=== PATIENT | female | born 1980 | race Caucasian/White ===

== ENCOUNTER 2019-07-12 08:25 | Day surgery (SDC) | payer BC, SELFPAY ==
[2019-06-16 12:47] VITALS: BMI 28.8
[2019-07-12] VITALS (8 sets, daily range): BP systolic 110–123; BP diastolic 50–70; PULSE 50–69; RESP 16; TEMP 36.6–36.9; O2SAT 98–100; BMI 23.6
[2019-07-12 08:51] LABS: Internal QC Validated? YES +Cl - CLEAR BKGD
[2019-07-12 08:52] LABS: Pregnancy, Urine Negative Negative
[2019-07-12] MEDS: Lactated Ringers 1,000 ML 100 ML IV ×2 (09:08→12:45)
--- NOTE | 2019-07-12 10:43 | HP.PCM_ITS ---
History and Physical I have re-examined the patient. There are no clinical changes since date of exam. Intake Vital Signs 06/16/19 Body Mass Index (BMI) 28.8 Intake Visit Reasons: LEFT KNEE Accompanied by: Is patient in pain?: Yes Allergies No Known Allergies Allergy (Verified 11/08/14 21:50) Medications Folic Acid 1 mg PO DAILY@0800 11/08/14 [History Confirmed 06/16/19] Naproxen [Naprosyn] 250 - 500 mg PO Q8H PRN PRN #30 tab 11/08/14 [Rx Confirmed 06/16/19] Laurens-3 Fatty Acids [Fish Oil] 500 mg PO DAILY 11/08/14 [History Confirmed 06/16/19] PFSH Social History (Updated 06/17/19 @ 11:35 by ZINA Jackson) Smoking Status: Never smoker HPI LEFT KNEE: Details: Parts of this documentation were recorded by a scribe, this documentation accurately reflects the service provided and the decisions made by me, ZINA Jackson 06/16/19 1242. GWENDOLYN GABRIEL is a 39 year old F here today for increased left medial and anter ior knee pain. She states that she has avoided squats and lunges due to sharp pain, she continues to exercise with modifications. Patient has increased clicking, instability and has pain with all ADLs especially sleeping and normal ambulation on a decline of any kind. Denies numbness, tingling or other associated symptoms. Patient has no evident swelling today and states it is not a concern. ROS Const Denies weakness Musc Reports system reviewed and no additional complaints, except as docu, Reports joint pain, Denies numbness Skin/Breast Reports system reviewed and no additional complaints, except as docu Neuro Yes system reviewed and no additional complaints, except as docu, No numbness, No weakness Ortho Exam Left Knee Skin/Wound: No ecchymosis, No erythema, No swelling Contralateral Normal: Yes Homans Sign: No Knee ROM: Yes ROM-Extension -20 to 0, Yes ROM-Flexion 0-140 Examination: Yes med jt line tenderness, No Lat jt line tenderness, Yes Pain with flexion, Yes Wallace's Test KNEE: No acute abnormalities on inspection. No localized or generalized swelling and no evident effusion. She continues to have evident reproducible medial joint line tenderness. She still has positive modified Apley's grind as well as Wallace's. She is neurovascularly intact. Assessment & Plan Problems 1. Other tear of medial meniscus of left knee as current injury, subsequent encounter S83.242D Plan Patient has been having symptoms in her left knee for almost exactly 1 year now. At this point she states that the symptoms have progressively gotten worse having a lot more instability and sometimes locking of the knee. She did have an MRI last July and we did discuss that it is very possible that this has changed/worsened as she is continue to be active since that time. MRI at that time showed possibility of a posterior capsule injury likely causing displacement of the joint with certain movements. Patient has tried conservative things and states that at this time she would like to proceed with surgery to correct this. All of the risks and benefits of surgery were discussed as well as the procedure and recovery times. All of their questions were answered to their satisfaction and consent was signed in office today. Patient will be notified by our office for the date of her surgery she will not of the time of her surgery until the day before. She will be contacted by surgery department as well as anesthesia for preanesthesia testing. Patient was given antimicrobial soap to be used the night before and morning of surgery. Notify the office if they have any other questions in the meantime. This note was generated with [employer] dictation software. It may contain incorrect words, spelling, and punctuation that were not noted in checking the note before signing. Coding Level of Care Code Off vis,est,level 3 Diagnoses Other tear of medial meniscus of left knee as current injury, subsequent encounter S83.629D ??Encounter type: subsequent encounter ??Meniscus tear of knee type: other type ??Tear current or old: current
--- NOTE | 2019-07-12 10:44 | PCM.DC.ORTHO ---
Discharge Diet: No Restrictions - ttwb left leg for 6 weeks, brace locked in extension at night and during ambulation, brace 0-30 degrees for 2 weeks Discharge Activity: May Not Drive May shower in (days): 1 Ice area for (Minutes): 20 - Every hour while awake. Weight Bearing Status: Weight bearing as tolerated Keep extremity elevated above heart level: Operative Extremity Call your doctor if your incision/area has: Continuous Slow Oozing, Sudden Increased Bleeding, Increased Pain/ Swelling, Increased Redness, Foul Smelling Discharge Call your doctor if you observe: Fever of 101 or Higher, Coldness, Increased Pain, Numbness or Tingling, Change in Color, Calf discomfort Allergies/Adverse Reactions: Allergies No Known Allergies Allergy (Verified 07/12/19 08:50) Medications to take at Discharge Glucos Sul 2Kcl/MSM/Chond/C/Mn [Glucosamine Chondroitin Cap] 1 ea PO DAILY 07/05/19 Oxycodone HCl/Acetaminophen [Percocet 5/325] 1 - 2 tab PO Q6H PRN PRN 5 Days #28 tab 07/12/19 The following prescriptions were given: Oxycodone HCl/Acetaminophen [Percocet 5/325] 1 - 2 tab PO Q6H PRN PRN 5 Days #28 tab PRN Reason: Pain Transmission Status: Received by [facility] Primary Care Physician: Ramesh Hernandez MD [Primary Care Provider] - Test Results: Test results from this visit will be discussed in further detail at your follow-up appointment, if applicable. Please Follow Up With: Gita Paulino, - [phone]
--- NOTE | 2019-07-12 10:44 | PCM.OPRPT ---
Report of Operation Date of Procedure: 07/12/19 Pre-Operative Diagnosis: left knee synovitis, med men tear Post-Operative Diagnosis: same Surgery/Procedure Performed:: salk medial meniscus repair, extensive synovectomy seam stay stitcher: Ilya Holland Type of Anesthesia:: General Anesthesiologist: Davis Cordero Estimated Blood Loss (mL): none Fluids Replaced: 500cc lr Description of Procedure: Preop note Patient is a 39-year-old female with continued left knee pain. Patient failed conservative treatment like to proceed with left knee arthroscopy repair as indicated. Risk benefits alternatives were discussed with patient. Risks including but not limited to blood loss, blood clot, infection, neurovascular injury, failure procedure, loss of life and loss of limb. Patient is aware of like proceed with left knee arthroscopy repair as indicated. Operative note Patient seen and examined preop holding area. Left knee was marked. Patient brought to the operating room placed supine on the operating table. 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 Left knee was prepped and draped in usual sterile fashion with a tourniquet around her upper thigh. Signed, anesthesia, antibiotics were administered. The contralateral limb SCDs placed in all bony problems well-padded padded. We then elevate the left knee exsanguinated and triggers rates her pressure of 250 torr. We then created a anterolateral portal with 11 blade. Begin diagnostic arthroscopy. Patellofemoral joint was intact there is a large plica and large synovitis in the anterior medial anterolateral joint line. We then created an anterior medial portal under direct visualization. We then probed the medial meniscus there was a capsular tear of the mid body. We then used a rasp to rasp the edges of the tear and he could also tell that was torn only because of it was unstable but was also an area of erythema at the capsular meniscal junction. We then rasped this area and then placed to reverse curved FasT-Fix devices on the undersurface of the tear we then reprepped the area which was stable. The ACL PCL were present within the notch. We again debrided more synovitis which was again anteromedial anterolateral preventing us from seeing the lateral meniscus. We then went to figure for we are able to improve the lateral meniscus which is intact and stable probing. The lateral femoral condyle the medial femoral condyle lateral to the tibial plateau and the medial tibial plateau were all intact and stable probing. The knee was irrigated Sterile Saline. Tourniquet Was Deflated for a Total Working Time of 24 Minutes. Sterile Dressings Were Applied after Return after the Incisions Were Closed with Interrupted 4-0 Nylon Stitches. Hinged Brace Locked in Extension Was Placed on Her Left Knee with Opening from 0 to 30 Degrees. Patient Tolerated Procedure Well No Comp Occasions [facility] Recovery Room in Stable Condition. Next Postoperative Next Toe-Touch Weightbearing Left Leg Next Follow-Up on Wednesday with Rickey for dressing change and brace adjustment We will give pictures to family in 2 weeks Call with increased pain numbness tingling or further issues arise [employer]uson disclaimer This note was generated with [employer] dictation software. It may contain incorrect words, spelling, and punctuation that were not noted in checking the note before signing.
[2019-07-12] MEDS: Cefazolin 2 GM in 0.9% Normal Saline 100 ML IV (11:29)
[2019-07-12] MEDS: Mupirocin Ointment 22gm Tube 1 APPLIC (12:00)
[2019-07-12] MEDS: Epinephrine (1 mg/ml) 1 MG/ML VIAL (12:00)
[2019-07-12] MEDS: HYDROcodone Bitartrate/Apap 5/325 Tablet PO (14:12)
== END 2019-07-12 15:06 | disposition home or self-care (01) ==
LOC: SDC 08:31 → AC 08:33
PROVIDERS: Anesthesiology; Family Provider Family Medicine; PCP Family Medicine; Referring Provider Orthopaedic Surgery; Visit Provider Orthopaedic Surgery
PROC: (CPT 29882; principal; 2019-07-12 09:45)
DX: S83.242D Other tear of medial meniscus, current injury, left knee, subsequent encounter (principal); M65.862 Other synovitis and tenosynovitis, left lower leg
CPT/HCPCS: 29882; 81025; J7120; J2405

== ENCOUNTER → 2019-07-25 10:02 | Outpatient (CLI) | payer BC, SELFPAY ==
[2019-07-25 09:13] VITALS: BMI 23.6
--- NOTE | 2019-07-25 10:04 | VDLE_ITS ---
Reason For Study: Swelling Procedure LEFT Exam performed in department. GSV is normal. A preliminary report was called and/or faxed CFV is compressible, spontaneous, phasic, to [place]. competent, and demonstrates normal augmentation. FV is compressible, spontaneous, phasic, competent and demonstrates normal augmentation. POP V is compressible, spontaneous, phasic, competent and demonstrates normal augmentation. T/P Trunk is compressible. PTV is compressible. LT PerV is compressible. Interpretation Summary There is no evidence of left lower extremity deep vein thrombosis. Left great saphenous vein appears patent and compressible segmentally. Ordering Physician: Gita Paulino Referring Physician: Ramesh Hernandez Performed By: Charley Mario RVT
== END ==
PROVIDERS: Family Provider Family Medicine; PCP Family Medicine; Referring Provider Orthopaedic Surgery; Visit Provider Orthopaedic Surgery
DX: M79.89 Other specified soft tissue disorders (principal)
CPT/HCPCS: 93971

== ENCOUNTER → 2023-08-20 | Outpatient (CLI) | payer BC, SELFPAY ==
--- NOTE | 2023-08-20 08:49 | BI_ITS ---
MAMMOGRAPHY - BILATERAL SCREENING REASON FOR EXAM: Female, 43 years old. Routine annual screening examination. PERTINENT HISTORY: Non-contributory. TECHNIQUE: Digital bilateral breast blanca (3D mammographic acquisition) in the CC and MLO projections. 2-D mediolateral oblique (MLO) and craniocaudad (CC) views of both breasts were obtained. CAD: Full Field Digital Mammography with Computer Added Detection was performed. COMPARISON: Comparison is made with prior outside examination of November 28, 2012. FINDINGS: Breast Composition: The breasts are heterogeneously dense, which may obscure small masses. There are no dominant masses or suspicious calcifications. No other significant abnormalities are identified. BI/SCRN MAMM (CAD)W/BLANCA BILAT IMPRESSION: Interval decrease in the density of the breast tissue. Yearly follow-up mammogram recommended. (A) ASSESSMENT CATEGORY: BIRADS Category 1: Negative. A letter regarding these results will be sent to the patient by the facility within 30 days. Approximately 10% of breast cancers are not detected by mammography. A normal mammogram should not delay biopsy of a clinically suspicious abnormality. [id number] Electronically Signed: Sherwin Villarreal MD at 9:52 EST ,
== END | disposition home or self-care (01) ==
LOC: OPBI 08:46
PROVIDERS: PCP Family Medicine; Referring Provider Nurse Practitioner Family; Visit Provider Nurse Practitioner Family
DX: Z12.31 Encounter for screening mammogram for malignant neoplasm of breast (principal)
CPT/HCPCS: 77063; 77067